=== PATIENT | female | born 1970 | race Caucasian/White ===

== ENCOUNTER 2016-12-17 10:01 | Emergency (ER) | payer MEDICAID ==
--- NOTE | 2016-12-17 10:16 | UC ---
Throat Pain/Nasal Artur HPI - HPI Summary HPI Summary: sinus congestion for over one week--6 days ago began to get worse no relief with otc medications, fever yesterday - History of Current Complaint Chief Complaint: UCRespiratory Stated Complaint: SINUS Time Seen by Provider: 12/17/16 10:05 Hx Obtained From: Patient Hx Last Menstrual Period: Menapause ?: No Onset/Duration: Gradual Onset, Lasting Days, Worse Since - past 6 days Severity: Moderate Cough: None Associated Signs & Symptoms: Positive: Sinus Discomfort, Nasal Discharge, Fever - Allergies/Home Medications Allergies/Adverse Reactions: Allergies Allergy/AdvReac Type Severity Reaction Status Date / Time Amoxicillin [From Augmentin] AdvReac Severe Vomiting, Verified 12/17/16 10:13 Diarrhea Clavulanic Acid AdvReac Severe Vomiting, Verified 12/17/16 10:13 [From Augmentin] Diarrhea PMH/Surg Hx/FS Hx/Imm Hx Previously Healthy: No Psychological History: Depression Other History Of: Negative For: HIV, Hepatitis B, Hepatitis C, Anticoagulant Therapy - Surgical History Surgical History: Yes Surgery Procedure, Year, and Place: TONSILLECTOMY - Family History Known Family History: Positive: Hypertension, Blood Disorder - Brother had a blood clot and . Negative: Renal Disease - Social History Occupation: Employed Full-time Lives: With Family Alcohol Use: Rare Substance Use Type: None Smoking Status (MU): Never Smoked Tobacco - Immunization History Most Recent Influenza Vaccination: none Review of Systems Constitutional: Chills, Fatigue Skin: Negative Eyes: Negative, Other - bilateral sinus shiners ENT: Negative, Sore Throat, Ear Ache, Nasal Discharge Respiratory: Negative Cardiovascular: Negative Gastrointestinal: Negative Genitourinary: Negative Motor: Negative Neurovascular: Negative Musculoskeletal: Negative Neurological: Negative Psychological: Negative All Other Systems Reviewed And Are Negative: Yes Physical Exam Triage Information Reviewed: Yes Appearance: Well-Nourished, Ill-Appearing, Pain Distress Vital Signs Reviewed: Yes Eye Exam: Normal Eyes: Positive: Conjunctiva Clear ENT Exam: Normal ENT: Positive: Normal ENT inspection, Hearing grossly normal, Pharynx normal, Nasal congestion, Nasal drainage, TMs normal. Negative: Tonsillar swelling, Tonsillar exudate, Trismus, Muffled/hoarse voice Dental Exam: Normal Neck exam: Normal Neck: Positive: Supple, Nontender, No Lymphadenopathy Respiratory Exam: Normal Respiratory: Positive: Chest non-tender, Lungs clear, Normal breath sounds, No respiratory distress, No accessory muscle use Cardiovascular Exam: Normal Cardiovascular: Positive: RRR, No Murmur, Pulses Normal, Brisk Capillary Refill Musculoskeletal Exam: Normal Musculoskeletal: Positive: Strength Intact, ROM Intact, No Edema Neurological Exam: Normal Neurological: Positive: Alert, Muscle Tone Normal Psychological Exam: Normal Skin Exam: Normal Throat Pain/Nasal Course/Dx - Course Assessment/Plan: flanse, afrin, zithromax, increase fluids follow with pcp - Differential Dx/Diagnosis Differential Diagnosis/HQI/PQRI: Otitis Media, Pharyngitis, Sinusitis, URI Provider Diagnoses: Acute rhinosinusitis Discharge - Discharge Plan Condition: Stable Disposition: HOME Prescriptions: Azithromycin TAB* [Zithromax TAB (Z-ANTWAN) 250 mg #6 tabs] 2 tab PO SEE INSTRUCTIONS #1 antwan Fluticasone NASAL SPRAY 50MCG* [Flonase NASAL SPRAY 50MCG*] 2 spray BOTH NARES DAILY #1 btl Oxymetazoline HCl [Afrin Nasal [place]] 0.05 % NA TID PRN #1 spr PRN Reason: nasal congestion Patient Education Materials: Nasal Rinse (ED), Sinusitis (ED), Oxymetazoline ( Into the nose) Referrals: Maria M Nunez PA [Primary Care Provider] - If Needed
[2016-12-17 10:18] VITALS: BP 136/81
== END 2016-12-17 10:27 | disposition home or self-care (01) ==
LOC: UCCORT 10:01
DX: J01.90 Acute sinusitis, unspecified (principal)
CPT/HCPCS: 99212; G0463

== ENCOUNTER 2018-06-24 08:20 | Emergency (ER) | payer OTHER ==
[2018-06-24 08:39] VITALS: BP 130/82
--- NOTE | 2018-06-24 08:54 | UC ---
UC General HPI - HPI Summary HPI Summary: ILL X 3 DAYS. C/O SINUS CONGESTION, SORE THROAT, l EAR PAIN AND COUGH. HX ASTHMA. GREEN NASAL DISCHARGE. NO FEVER OR MM. ACHES - History of Current Complaint Chief Complaint: UCRespiratory Stated Complaint: ST Time Seen by Provider: 06/24/18 08:35 Hx Obtained From: Patient Hx Last Menstrual Period: 4 days ago Onset/Duration: Gradual Onset Timing: Constant Pain Intensity: 5 Associated Signs & Symptoms: Negative: Chest Pain - Allergy/Home Medications Allergies/Adverse Reactions: Allergies Allergy/AdvReac Type Severity Reaction Status Date / Time amoxicillin [From Augmentin] Allergy Vomiting, Verified 06/24/18 08:29 dehydration clavulanic acid Allergy Vomiting, Verified 06/24/18 08:29 [From Augmentin] dehydration Home Medications: Home Medications D-Methorphan/PE/Acetaminophen [Cold/Flu Relief] 1 tab PO SEE INSTRUCTIONS PRN [History Confirmed 06/24/18] guaiFENesin [Mucinex] 600 mg PO BID PRN 06/24/18 [History Confirmed 06/24/18] PMH/Surg Hx/FS Hx/Imm Hx Endocrine History: Diabetes - BORDERLINE Respiratory History: Asthma Other History Of: Negative For: HIV, Hepatitis B, Hepatitis C, Anticoagulant Therapy - Surgical History Surgical History: Yes Surgery Procedure, Year, and Place: TONSILLECTOMY - Family History Known Family History: Positive: Hypertension, Blood Disorder - Brother had a blood clot and . Negative: Renal Disease - Social History Occupation: Employed Full-time Alcohol Use: Occasionally Substance Use Type: None Smoking Status (MU): Never Smoked Tobacco - Immunization History Most Recent Influenza Vaccination: none Review of Systems All Other Systems Reviewed And Are Negative: Yes Constitutional: Positive: Negative Skin: Positive: Negative Eyes: Positive: Negative ENT: Positive: Sore Throat, Ear Ache, Sinus Congestion, Sinus Pain/Tenderness Respiratory: Positive: Shortness Of Breath, Cough Cardiovascular: Positive: Negative Gastrointestinal: Positive: Negative Genitourinary: Positive: Negative Motor: Positive: Negative Neurovascular: Positive: Negative Musculoskeletal: Positive: Negative Neurological: Positive: Negative Psychological: Positive: Negative Physical Exam Triage Information Reviewed: Yes Appearance: Ill-Appearing - BUT NON TOXIC Vital Signs: Initial Vital Signs Temp 98.5 F 06/24/18 08:34 Pulse 86 06/24/18 08:34 Resp 18 06/24/18 08:34 BP 130/82 06/24/18 08:34 Pulse Ox 99 06/24/18 08:34 Vital Signs Reviewed: Yes Eyes: Positive: Conjunctiva Clear ENT: Positive: Pharyngeal erythema, Nasal congestion, TMs normal, Sinus tenderness, Uvula midline. Negative: Nasal drainage, Trismus, Muffled voice, Hoarse voice Neck: Positive: Supple, Tenderness @ - PERITONSILAR NODES WHICH ARE ENLARGED Respiratory: Positive: No respiratory distress, Decreased breath sounds Cardiovascular: Positive: RRR, No Murmur Abdomen Description: Positive: Nontender, No Organomegaly, Soft Bowel Sounds: Positive: Present Musculoskeletal: Positive: ROM Intact Neurological: Positive: Alert Psychological: Positive: Age Appropriate Behavior Skin Exam: Normal Diagnostics - Laboratory Diagnostic Studies Completed/Ordered: RAPID STREP=POSITIVE Course/Dx - Diagnoses Provider Diagnosis: Strep throat, Asthma Discharge - Sign-Out/Discharge Documenting (check all that apply): Patient Departure All imaging exams completed and their final reports reviewed: No Studies - Discharge Plan Condition: Stable Disposition: HOME Prescriptions: Albuterol HFA INHALER* [Ventolin HFA Inhaler*] 2 puff INH Q6H #1 mdi Azithromycin 500 mg PO DAILY 5 Days #5 tablet predniSONE TAB* [Deltasone 20 MG TAB*] 40 mg PO DAILY 5 Days #10 tab Patient Education Materials: Asthma (DC), Strep Throat (ED) Forms: *Work Release Referrals: Maria M Nunez PA [Primary Care Provider] - 5 Days - Billing Disposition and Condition Condition: STABLE Disposition: Home - Attestation Statements Provider Attestation: I was available for consult. This patient was seen by the HOANG. The patient was not presented to , seen by or examined by me Reba Crabtree MD
== END 2018-06-24 09:04 | disposition home or self-care (01) ==
LOC: UCCORT 08:20
DX: J02.0 Streptococcal pharyngitis (principal); J45.909 Unspecified asthma, uncomplicated; B95.0 Streptococcus, group A, as the cause of diseases classified elsewhere; Z88.0 Allergy status to penicillin; Z88.8 Allergy status to other drugs, medicaments and biological substances; R73.03 Prediabetes
CPT/HCPCS: 87651; 99212; G0463